=== PATIENT | female | born 1965 | race Caucasian/White ===

== ENCOUNTER → 2017-07-28 | Outpatient (CLI) | payer OTHER ==
[~2017-07-28] MED LIST: AMLODIPINE BES2.5 MG PO; ASPIRIN81 M1 PO; ATIVAN0.5 MG PO; IBU-8800 MG PO; LIPITOR20 MG PO; LOPRESSOR PO; NYSTATIN 5 ML5 ML; OMNICEF300 MG PO; PERCOCET 325 MG1 TA3 PO; PRILOSEC40 MG PO; SYNTHROID0.15 MG PO; ZANTAC 7575 MG PO; Zofran4 MG PO
[2017-07-28 10:37] LABS: HEMATOCRIT 44.8 % (37.0-47.0); HEMOGLOBIN 15.7 g/dl (12.0-16.0); MEAN CELL VOLUME 93.7 fl (81.0-99.0); MEAN CORPUSCULAR HGB 32.8 pg (27.0-31.0); MEAN PLATELET VOLUME 10.8 fl (9.6-12.3); RED BLOOD COUNT 4.78 10*6/uL (4.10-5.10); RED CELL DISTRI WIDTH 13.2 % (0-14.5); WHITE BLOOD COUNT 8.4 10*3/uL (4.8-10.8)
[2017-07-28 10:58] LABS: ALBUMIN 3.6 gm/dl (3.1-4.5); ALKALINE PHOSPHATASE 143 U/L (45-117); BUN 9 mg/dl (7-24); CHLORIDE 107 mmol/L (98-107); CHOLESTEROL 138 mg/dL (<200); CREATININE 0.75 mg/dL (0.55-1.02); HDL CHOLESTEROL 41 mg/dl (40-60); LDL CHOLESTEROL 82 mg/dL (9-159); POTASSIUM 3.4 mmol/L (3.5-5.1); SGOT/AST 11 IU/L (3-35); SGPT/ALT 22 U/L (12-78); SODIUM 142 mmol/L (136-145); TOTAL PROTEIN 7.1 gm/dL (6.4-8.2); TRIGLYCERIDES 76 mg/dl (<150); VLDL CHOLESTEROL 15 mg/dL (6-40)
[2017-07-28 11:20] LABS: VITAMIN D, 25-HYDROXY 38.5 ng/mL (30-100)
== END | disposition home or self-care (01) ==
LOC: LAB 09:25
DX: N39.41 Urge incontinence (principal); C73 Malignant neoplasm of thyroid gland; I10 Essential (primary) hypertension; E55.9 Vitamin D deficiency, unspecified; E78.00 Pure hypercholesterolemia, unspecified; R20.0 Anesthesia of skin; E89.0 Postprocedural hypothyroidism

== ENCOUNTER → 2017-08-02 | Outpatient (CLI) | payer OTHER | END | disposition home or self-care (01) | LOC: LAB 08:28 → CT 09:00 | DX: D25.9 Leiomyoma of uterus, unspecified (principal) ==

== ENCOUNTER 2024-12-12 12:00 | Emergency (ER) | payer OTHER ==
[~2024-12-12] VITALS: Ht 170.1 cm; Wt 94.3 kg
[~2024-12-12 12:00] MED LIST changes: -LOPRESSOR PO; +LOPRESSOR25 MG PO
[2024-12-12] MEDS ORDERED: HYDROCODONE-AC1 EAC1 PO (13:05)
[2024-12-14] MEDS ORDERED: VITAMIN D310 MC3 PO (13:02)
[2024-12-14] MEDS ORDERED: MULTI VITAMIN200 MCG PO (13:05)
== END 2024-12-12 14:02 | disposition home or self-care (01) ==
LOC: ED 12:00
DX: S82.851A Displaced trimalleolar fracture of right lower leg, initial encounter for closed fracture (principal); Z79.899 Other long term (current) drug therapy; Z79.82 Long term (current) use of aspirin; Z98.890 Other specified postprocedural states; W18.39XA Other fall on same level, initial encounter; Y93.89 Activity, other specified; Y92.89 Other specified places as the place of occurrence of the external cause; Y99.8 Other external cause status

== ENCOUNTER → 2024-12-16 | Day surgery (SDC) | payer OTHER ==
[2024-12-15 09:43] LABS: BUN 9 mg/dl (9-23); CHLORIDE 106 mmol/L (98-107)
[~2024-12-16] VITALS: Ht 170.1 cm; Wt 94.3 kg
[~2024-12-16] MED LIST changes: +Bupivacaine Hydrochloride/Ep2 30 ML VIAL ONE; +Clindamycin Phosphate 50 ML IV ONE; +HYDROCODONE-AC1 EAC1 PO; +Lactated Ringer's Solution 1,000 ML IV ONE; +Lidocaine Hydrochloride 2% 5 ML SDV IV ONE; +MULTI VITAMIN200 MCG PO; +Ondansetron Hydrochloride 4 MG/2 ML VIAL IV ONE; +PROPOFOL 200 MG/20 ML VIAL IV ONE; +Ropivacaine Hydrochloride 5 MG/ML 20 ML AMP IJ ONE; +SEVOFLURANE 250 ML BOT INH ONE; +VITAMIN D310 MC3 PO
[2024-12-16 07:15] VITALS: BP 107/67
[2024-12-16 10:35] VITALS: BP 112/55
[2024-12-16 10:50] VITALS: BP 128/62
[2024-12-16 11:05] VITALS: BP 132/57
[2024-12-16 11:20] VITALS: BP 131/52
[2024-12-16 11:34] VITALS: BP 128/60
== END | disposition home or self-care (01) ==
LOC: SDC 12-14 11:00
PROVIDERS: ATTEND Orthopaedic Surgery
DX: S82.851A Displaced trimalleolar fracture of right lower leg, initial encounter for closed fracture (principal); M85.80 Other specified disorders of bone density and structure, unspecified site; I10 Essential (primary) hypertension; E78.00 Pure hypercholesterolemia, unspecified; K21.9 Gastro-esophageal reflux disease without esophagitis; G89.18 Other acute postprocedural pain; F17.210 Nicotine dependence, cigarettes, uncomplicated; Z98.891 History of uterine scar from previous surgery; Z90.89 Acquired absence of other organs; Z98.890 Other specified postprocedural states; Z79.890 Hormone replacement therapy; Z79.891 Long term (current) use of opiate analgesic; Z79.899 Other long term (current) drug therapy; Z91.018 Allergy to other foods; Z88.1 Allergy status to other antibiotic agents; X58.XXXA Exposure to other specified factors, initial encounter; Y93.89 Activity, other specified; Y92.89 Other specified places as the place of occurrence of the external cause; Y99.8 Other external cause status

== ENCOUNTER → 2024-12-29 | Outpatient (CLI) | payer OTHER ==
[~2024-12-29] MED LIST changes: -Bupivacaine Hydrochloride/Ep2 30 ML VIAL ONE; -Clindamycin Phosphate 50 ML IV ONE; -Lactated Ringer's Solution 1,000 ML IV ONE; -Lidocaine Hydrochloride 2% 5 ML SDV IV ONE; -Ondansetron Hydrochloride 4 MG/2 ML VIAL IV ONE; -PROPOFOL 200 MG/20 ML VIAL IV ONE; -Ropivacaine Hydrochloride 5 MG/ML 20 ML AMP IJ ONE; -SEVOFLURANE 250 ML BOT INH ONE
== END | disposition home or self-care (01) ==
LOC: ORTHO 01:06
PROVIDERS: ATTEND Orthopaedic Surgery
DX: S82.851D Displaced trimalleolar fracture of right lower leg, subsequent encounter for closed fracture with routine healing (principal); M77.31 Calcaneal spur, right foot; X58.XXXD Exposure to other specified factors, subsequent encounter

== ENCOUNTER → 2025-01-26 | Outpatient (CLI) | payer OTHER | END | disposition home or self-care (01) | LOC: ORTHO 01:11 | PROVIDERS: ATTEND Orthopaedic Surgery | DX: S82.851D Displaced trimalleolar fracture of right lower leg, subsequent encounter for closed fracture with routine healing (principal); M79.89 Other specified soft tissue disorders; X58.XXXD Exposure to other specified factors, subsequent encounter ==

== ENCOUNTER → 2025-03-09 | Outpatient (CLI) | payer OTHER | END | disposition home or self-care (01) | LOC: ORTHO 01:15 | PROVIDERS: ATTEND Orthopaedic Surgery | DX: S82.851D Displaced trimalleolar fracture of right lower leg, subsequent encounter for closed fracture with routine healing (principal); Z98.890 Other specified postprocedural states; X58.XXXD Exposure to other specified factors, subsequent encounter ==

== ENCOUNTER → 2025-04-01 | Outpatient (CLI) | payer OTHER | END | disposition home or self-care (01) | LOC: RAD 13:42 | PROVIDERS: ATTEND Orthopaedic Surgery | DX: Z13.820 Encounter for screening for osteoporosis (principal); M85.89 Other specified disorders of bone density and structure, multiple sites; M81.0 Age-related osteoporosis without current pathological fracture; Z78.0 Asymptomatic menopausal state ==